=== PATIENT | male | born 2000 | race Caucasian/White ===

== ENCOUNTER 2022-05-19 22:41 | Emergency (ER) | payer OTHER ==
[~2022-05-19] VITALS: Ht 403.9 cm; Wt 72.6 kg
[2022-05-19 22:59] VITALS: BP 133/64
--- NOTE | 2022-05-19 22:59 | NUR ---
PT TO CHAIR C
--- NOTE | 2022-05-19 23:19 | NUR ---
Patient being evaluated by physician
[2022-05-19] MEDS ORDERED: ACETAMINOPHEN 325 MG TAB PO ONE (23:25)
--- NOTE | 2022-05-20 00:08 | NUR ---
Patient discharged with v/s stable. Written and verbal after care instructions given and explained. Patient verbalized understanding. Ambulatory with steady gait. All questions addressed prior to discharge. Advised to follow up with PMD.
== END 2022-05-20 00:08 | disposition home or self-care (01) ==
LOC: MED 22:41
DX: S09.90XA Unspecified injury of head, initial encounter (principal); R55 Syncope and collapse; R42 Dizziness and giddiness; W19.XXXA Unspecified fall, initial encounter; Y93.89 Activity, other specified; Y92.89 Other specified places as the place of occurrence of the external cause; Y99.8 Other external cause status
CPT/HCPCS: 70450; 93005; 99284

== ENCOUNTER 2024-04-06 12:06 | Emergency (ER) | payer OTHER ==
[~2024-04-06] VITALS: Ht 177.8 cm; Wt 72.6 kg
[2024-04-06 12:09] VITALS: BP 118/69; PULSE 52; RESP 16; TEMP 97.8; O2SAT 98
[2024-04-06 12:35] VITALS: O2SAT 98
[2024-04-06 13:03] VITALS: BP 118/69; PULSE 52; RESP 16; TEMP 97.8; O2SAT 98
== END 2024-04-06 13:05 | disposition home or self-care (01) ==
LOC: MED 12:06
DX: R55 Syncope and collapse (principal)
CPT/HCPCS: 93005; 99283